=== PATIENT | female | born 1965 ===

== ENCOUNTER → 2022-05-25 10:17 | Outpatient (BNVA) | payer MEDICAID, SELFPAY | PROVIDERS: Family Provider Family Medicine; PCP Family Medicine; Visit Provider Family Medicine | DX: K75.81 Nonalcoholic steatohepatitis (NASH) (principal); K75.89 Other specified inflammatory liver diseases; R74.8 Abnormal levels of other serum enzymes | CPT/HCPCS: 80076; 82977 ==

== ENCOUNTER → 2022-11-16 16:00 | Outpatient (BNVA) | payer MEDICAID, SELFPAY | PROVIDERS: Family Provider Family Medicine; PCP Family Medicine; Visit Provider Family Medicine | DX: K72.90 Hepatic failure, unspecified without coma (principal); R60.9 Edema, unspecified; R06.00 Dyspnea, unspecified; F41.9 Anxiety disorder, unspecified; M79.10 Myalgia, unspecified site | CPT/HCPCS: 80048 ==

== ENCOUNTER → 2022-11-26 08:16 | Outpatient (BNVA) | payer MEDICAID, SELFPAY | PROVIDERS: Family Provider Family Medicine; PCP Family Medicine; Visit Provider Family Medicine | DX: K75.81 Nonalcoholic steatohepatitis (NASH) (principal); R74.8 Abnormal levels of other serum enzymes | CPT/HCPCS: 80076; 82977 ==

== ENCOUNTER 2023-01-19 10:17 | Outpatient (CLI) | payer MEDICAID, SELFPAY ==
--- NOTE | 2023-01-19 10:30 | MM_ITS ---
WS: [id number] VIEWS: MLO and CC views both breasts. 3D digital tomosynthesis is also included in this exam. No comparisons. Findings: There is 6 mm smoothly marginated nodular density in the anterior lateral aspect of the left breast n ear the subareolar area. This probably represents a small cyst however ultrasound is recommended for confirmation. No other significant finding in either breast. There are coarse benign-appearing calcif ications in both breasts. Scattered fibroglandular densities in both breasts. Regional ultrasound of the anterior lateral left breast is recommended for follow-up. MM/[place] [id number] Impression: BI-RADS: 0-Incomplete: Need additional imaging evaluation FOLLOW-UP: See Report This mammogram was also analyzed by the Computer Aided Detection System [employer].
--- NOTE | 2023-01-19 10:36 | XR_ITS ---
WS: [id number] Exam: XR thoracic spine 2V [id number] Date/Time of Exam: 01/19/2023 11:05 AM Reason For Exam: back pain No fracture or dislocation identified. Anterior bridging osteophytes noted throughout the mid and low er thoracic spine. Normal paraspinal soft tissues. No scoliosis seen. XR/XR thoracic spine 2V [id number] IMPRESSION: 1. No fracture or malalignment. 2. Degenerative changes and spondylosis.
== END 2023-01-19 10:18 | disposition home or self-care (01) ==
LOC: RAD 10:28
PROVIDERS: PCP Family Medicine; Visit Provider Family Medicine
DX: M54.6 Pain in thoracic spine (principal); Z12.31 Encounter for screening mammogram for malignant neoplasm of breast; M47.814 Spondylosis without myelopathy or radiculopathy, thoracic region
CPT/HCPCS: 72070; 77063; 77067

== ENCOUNTER 2023-02-07 10:27 | Outpatient (CLI) | payer MEDICAID, SELFPAY ==
--- NOTE | 2023-02-07 10:40 | US_ITS ---
WS: [id number] ULTRASOUND LEFT BREAST HISTORY: follow up on findings from mammogram COMPARISON: 01/19/2023 TECHNIQUE: 2-D and Doppler. There are 2 hypoechoic masses in the anterior LEFT breast. Neither of these are simple cysts. At 4:00 , at the areolar is a hypoechoic mass with no increased vascularity measuring 4 x 4 x 4 mm. There is an additional slightly lobulated hypoechoic mass at 4:00, 1 cm from the nipple measuring 5 x 4 x 4 mm . Neither of these are simple cyst. Suspect these are probably complex cyst. US/US breast LT limited* [id number] IMPRESSION: BI-RADS: 4-Suspicious Finding-Biopsy Should Be Considered FOLLOW-UP: Biopsy Recommended 1. There are 2 hypoechoic masses in the LEFT breast at 4:00. These may be comp tila cysts but are as they are not completely cystic additional evaluation is re commended. 2. Recommend ultrasound-guided aspiration of the probable cystic nodules at 4: 00. If these do not aspirate core biopsies should be obtained.
== END 2023-02-07 10:28 | disposition home or self-care (01) ==
LOC: RAD 10:31
PROVIDERS: PCP Family Medicine; Visit Provider Family Medicine
DX: N63.23 Unspecified lump in the left breast, lower outer quadrant (principal)
CPT/HCPCS: 76642

== ENCOUNTER → 2023-02-15 10:37 | Outpatient (BNVA) | payer MEDICAID, SELFPAY | PROVIDERS: PCP Family Medicine; Visit Provider Family Medicine | DX: K72.90 Hepatic failure, unspecified without coma (principal); R60.9 Edema, unspecified; R92.8 Other abnormal and inconclusive findings on diagnostic imaging of breast; M54.6 Pain in thoracic spine; G89.29 Other chronic pain | CPT/HCPCS: 80053 ==

== ENCOUNTER → 2023-05-09 10:29 | Outpatient (BNVA) | payer MEDICAID, SELFPAY | PROVIDERS: PCP Family Medicine; Visit Provider Family Medicine | DX: R53.83 Other fatigue (principal); R06.00 Dyspnea, unspecified; R60.9 Edema, unspecified; K75.89 Other specified inflammatory liver diseases; G62.9 Polyneuropathy, unspecified; K72.90 Hepatic failure, unspecified without coma | CPT/HCPCS: 80053; 80061; 82607; 83880; 84443; 85025 ==

== ENCOUNTER → 2024-07-10 08:16 | Outpatient (BNVA) | payer MEDICARE, SELFPAY | PROVIDERS: PCP Family Medicine; Visit Provider Family Medicine | DX: R74.8 Abnormal levels of other serum enzymes (principal) | CPT/HCPCS: 80053; 80061 ==

== ENCOUNTER → 2024-07-24 15:06 | Outpatient (BNVA) | payer MEDICARE, SELFPAY | PROVIDERS: PCP Family Medicine; Visit Provider Nurse Practitioner Family | DX: L40.0 Psoriasis vulgaris (principal); L57.8 Other skin changes due to chronic exposure to nonionizing radiation; D22.39 Melanocytic nevi of other parts of face; L81.4 Other melanin hyperpigmentation | CPT/HCPCS: 99204 ==

== ENCOUNTER → 2025-07-24 07:21 | Outpatient (BNVA) | payer MEDICARE, SELFPAY | PROVIDERS: PCP Nurse Practitioner Family; Visit Provider Podiatrist Foot & Ankle Surgery | DX: E11.40 Type 2 diabetes mellitus with diabetic neuropathy, unspecified (principal); L60.3 Nail dystrophy; E11.8 Type 2 diabetes mellitus with unspecified complications; I73.9 Peripheral vascular disease, unspecified; S90.211A Contusion of right great toe with damage to nail, initial encounter; Z79.4 Long term (current) use of insulin; X58.XXXA Exposure to other specified factors, initial encounter | CPT/HCPCS: 11721; 99204 ==

== ENCOUNTER 2025-09-23 15:01 | Outpatient (CLI) | payer MEDICARE, SELFPAY ==
--- NOTE | 2025-09-23 15:08 | MR_ITS ---
WS: [id number] MRI LEFT SHOULDER HISTORY: TEAR OF LEFT SUPRASPINATUS TENDON COMPARISON: None available. TECHNIQUE: Multiplanar sequences of the shoulder joint are submitted. Mild AC joint arthritis. AC joint is narrowed with small osteophytes. Minimal subacromial impingement by an enthesopathy. There is a small amount of fluid in the subacromial and subdeltoid bursa. No os acromion. Normal position of the biceps tendon. There is abnormal signal in the biceps tendon as it crosses through the rotator cuff interval and over the lesser tuberosity. Biceps tendon is enlarged and intermediate signal. Short segment tear involving the articular surface distal supraspinatus tendon. Tear is directly over the superior humeral head. No full-thickness tear or retraction. The remaining tendons are intact. No muscle atrophy or edema. Abnormal signal throughout the rotator cuff interval. There is increased T2 signal. High-grade tear of the coracohumeral ligament. Abnormal signal in the biceps tendon and throughout the rotator cuff interval at the superior labrum. Focal tear within the superior labrum. Tear extends anteriorly into the anterior labrum. The remaining labrum appears intact. No acute fractures or marrow edema. Low signal focus in the distal supraspinatus tendon consistent with calcific tendinitis of the supraspinatus. MR/MR shoulder LT wo con* [id number] IMPRESSION: 1. Abnormal signal in the rotator cuff interval with a complex tear. Abnormal signal in the biceps tendon from tendinopathy through the rotator cuff interval . Associated superior anterior labral tear. 2. Short segment tear involving the distal articular surface of the supraspina tus tendon as it is associated with the rotator cuff interval. 3. High-grade tear coracohumeral ligament. 4. Mild AC joint arthritis. 5. Distal supraspinatus calcific tendinitis.
== END 2025-09-23 15:02 | disposition home or self-care (01) ==
LOC: RAD 15:02
PROVIDERS: PCP Nurse Practitioner Family; Visit Provider Internal Medicine
DX: M75.102 Unspecified rotator cuff tear or rupture of left shoulder, not specified as traumatic (principal); S43.411A Sprain of right coracohumeral (ligament), initial encounter; M19.012 Primary osteoarthritis, left shoulder; M75.32 Calcific tendinitis of left shoulder
CPT/HCPCS: 73221